=== PATIENT | male | born 1985 | race Caucasian/White ===

== ENCOUNTER → 2016-12-26 | Outpatient (CLI) | payer OTHER ==
--- NOTE | 2016-12-27 05:00 | REP ---
Clinical: Pain. Technique: AP, lateral, bilateral oblique views of the right third digit. Findings: There is a corner fracture along the dorsal aspect at the base of the distal phalanx with overlying soft tissue swelling. Remainder examination appears normal. Impression: Corner fracture along the dorsal aspect at the base of the distal phalanx. Signed by Amrik Castillo MD 12/27/2016 04:52 A
== END ==
LOC: M WUC 16:29
PROVIDERS: ATTEND Physician Assistant
DX: M79.644 Pain in right finger(s) (principal)

== ENCOUNTER → 2018-04-13 | Outpatient (CLI) | payer BC | LOC: M WUC 17:25 | DX: M25.571 Pain in right ankle and joints of right foot (principal) ==

== ENCOUNTER → 2021-02-20 | Outpatient (CLI) | payer OTHER | LOC: M RAD 08:59 | PROVIDERS: ATTEND Internal Medicine | DX: K76.0 Fatty (change of) liver, not elsewhere classified (principal) ==

== ENCOUNTER 2021-11-18 21:42 | Emergency (ER) | payer OTHER ==
[~2021-11-18] VITALS: Ht 185.4 cm; Wt 118.2 kg
[2021-11-19] MEDS ORDERED: BACITRACIN OINTMENT 30GM TUBE TOP ONE (00:40)
[2021-11-19 00:45] VITALS: BP 144/81
== END 2021-11-19 00:53 | disposition home or self-care (01) ==
LOC: M ED 21:42
DX: S01.312A Laceration without foreign body of left ear, initial encounter (principal); X58.XXXA Exposure to other specified factors, initial encounter; Y92.89 Other specified places as the place of occurrence of the external cause

== ENCOUNTER → 2022-01-30 | Outpatient (REF) | payer OTHER ==
[2022-01-31 19:10] LABS: ANTI-MITOCHONDRIAL ANTIBODY <20.0 Units (0.0-20.0); ANTINUCLEAR ANTIBODIES DIRECT Negative (Negative)
== END ==
LOC: M LAB REF 12:38
PROVIDERS: ATTEND Internal Medicine
DX: R74.01 Elevation of levels of liver transaminase levels (principal)

== ENCOUNTER → 2022-08-21 | Outpatient (REF) | payer OTHER | LOC: M LAB REF 11:16 | PROVIDERS: ATTEND Internal Medicine | DX: K76.0 Fatty (change of) liver, not elsewhere classified (principal) ==